=== PATIENT | female | born 1990 | race Caucasian/White ===

== ENCOUNTER 2021-08-25 23:17 | Emergency (ER) | payer MEDICAID ==
[~2021-08-25] VITALS: Ht 165.1 cm; Wt 85.0 kg
[2021-08-25 23:45] VITALS: BP 140/86
[2021-08-26] MEDS ORDERED: OLANZAPINE 5MG TABLET ODT PO ONE (00:15)
[2021-08-26 00:52] LABS: BASOPHILS % 0.5 % (0.0-2.0); CHLORIDE 105 mEq/L (98-107); EOSINOPHILS % 1.3 % (0.0-5.0); HEMATOCRIT. 35.4 % (36.0-48.0); HEMOGLOBIN. 11.4 g/dL (12.0-16.0); LYMPHOCYTES % 32.3 % (20.0-50.0); MEAN CORPUSCULAR HEMOGLOBIN 28.8 pg (28.0-32.0); MEAN CORPUSCULAR VOLUME 89.5 fL (81.0-99.0); MEAN PLATELET VOLUME 6.8 fl (7.4-10.4); MONOCYTES % 5.5 % (2.0-8.0); NEUTROPHILS % 60.4 % (40.0-76.0); PLATELET 277 x1000/uL (130-400); RED BLOOD CELL COUNT 3.96 mill/uL (4.2-5.4); RED CELL DISTRIBUTION WIDTH 14.1 % (11.6-14.6)
[2021-08-26 00:56] LABS: ETHANOL BLOOD < 10 mg/dL
[2021-08-26 01:00] LABS: HCG SCREEN NEGATIVE
== END 2021-08-26 00:38 | disposition left against medical advice (07) ==
LOC: ER 23:17
DX: F20.9 Schizophrenia, unspecified (principal); I10 Essential (primary) hypertension; Z88.2 Allergy status to sulfonamides
CPT/HCPCS: 36415; 80053; 80307; 80320; 80329; 84703; 85025; 99283; G0480